=== PATIENT | female | born 1980 | race Caucasian/White ===

== ENCOUNTER 2018-01-18 10:04 | Outpatient (CLI) | payer OTHER ==
[2018-01-18] MEDS ORDERED: PRENATAL TABLE1 EAC2 PO (10:36)
== END 2018-01-18 15:00 | disposition home or self-care (01) ==
LOC: OBS/DEL 10:04
DX: O60.03 Preterm labor without delivery, third trimester (principal); Z34.83 Encounter for supervision of other normal pregnancy, third trimester